=== PATIENT | female | born 1985 | race Asian ===

== ENCOUNTER → 2019-08-15 | Outpatient (CLI) | payer OTHER ==
[2019-08-16 03:08] LABS: RUBEOLA (MEASLES) IGG 67.3 AU/mL (Immune >16.4)
== END | disposition home or self-care (01) ==
LOC: RADPV 14:05
PROVIDERS: ATTEND Internal Medicine
DX: Z02.1 Encounter for pre-employment examination (principal); R76.11 Nonspecific reaction to tuberculin skin test without active tuberculosis; M41.84 Other forms of scoliosis, thoracic region
CPT/HCPCS: 86706; 86735; 86762; 86765; 86787